=== PATIENT | male | born 1990 | race Two or more races ===

== ENCOUNTER 2024-07-04 13:47 | Inpatient (IN) | payer OTHER ==
[~2024-07-04] VITALS: Ht 172.7 cm; Wt 63.5 kg
[2024-07-04] MEDS ORDERED: NEURONTIN300 MG (13:54)
[2024-07-04] MEDS ORDERED: DISKETS40 MG (13:54)
--- NOTE | 2024-07-04 13:56 | NUR ---
PTE ALERTA Y ORIENTADO X3 REFIERE DOLOR EN TODO EL CUERPO. PTE DX CON SICKLE CELL. SE LE SEAN S/V Y SE UBICA
[2024-07-04] MEDS ORDERED: 0.9 % SODIUM CHLORIDE 1,000 ML IV STA ×2 (14:46→17:37)
[2024-07-04] MEDS ORDERED: ONDANSETRON HCL 2 MG/ML VIAL IV STA (14:46)
[2024-07-04] MEDS ORDERED: MEPERIDINE HCL/PF 50 MG/ML VIAL IM ONE ×2 (15:00→20:45)
--- NOTE | 2024-07-04 15:25 | NUR ---
SE EDUCA A PTE SOBRE TX MEDICO, SE SEAN MUESTRAS DE LABORATORIO UTILIZANDO MEDIDAS ASEPTICAS, SE COLOCA H/L DONNA DE EDEMA Y SE ADMINISTRAN MEDICAMENTOS LOS CUALES TOLERA.
[2024-07-04 16:08] LABS: URINE APPEARANCE Clear; URINE BILIRRUBIN Negative (NEGATIVE); URINE BLOOD Negative; URINE COLOR Dark Yellow; URINE GLUCOSE Negative (NEGATIVE); URINE KETONE Negative (NEGATIVE); URINE LEUKOCYTE Small; URINE NITRATE Negative; URINE PROTEIN Negative (NEGATIVE)
[2024-07-04 16:09] LABS: URINE BACTERIA 29.3 uL (0.0-1933); URINE EPITHELIAL CELLS 6.8 uL (0.0-38.8); URINE WBC 100.3 uL (0.0-23.2)
[2024-07-04 16:14] LABS: URINE CAST 0.14 uL (0.0-1.40); URINE RBC 1.6 uL (0.0-20.8); URINE UROBILINOGEN >= 8.0 E.U./dl
[2024-07-04 16:29] LABS: INR 1.12; PARTIAL THROMBOPLASTIN TIME 24.4 SECONDS (22.0-34.0); PROTHROMBIN TIME 12.1 SECONDS (9.0-11.5)
[2024-07-04 16:46] LABS: CALCIUM 9.4 mg/dL (8.5-10.1); CREATININE SERUM 0.84 mg/dL (0.70-1.30); GFR 103.98; POTASSIUM 4.31 mEq/L (3.5-5.1)
[2024-07-04 17:01] LABS: MEAN CORPUSCULAR HGB CONC 35.2 g/dl (32.0-36.0)
[2024-07-04 17:07] LABS: CORRECTED WBC 6.35 K/mm3; HEMOGLOBIN 9.1 g/dL (13-16.00); RED BLOOD COUNT 2.71 M/uL (4.00-6.00)
[2024-07-04 17:08] LABS: MEAN CORPUSCULAR HEMOGLOBIN 33.8 pg (27.00-32.0); PLATELET COUNT 308 K/uL (150-450); RED CELL DISTRIBUTION WIDTH 24.8 % (11.5-14.5)
[2024-07-04] MEDS ORDERED: OxyCODONE HCL/APAP UD (PERCOCET) PO ONE (17:45)
[2024-07-04] MEDS ORDERED: KETOROLAC TROMETHAMINE 30 MG VIAL IV ONE (17:45)
[2024-07-04] MEDS ORDERED: DIPHENHYDRAMINE HCL 50 MG/ML VIAL 1ML IV ONE (17:45)
[2024-07-04] MEDS ORDERED: PROMETHAZINE HCL 25 MG/ML AMPUL IM ONE (20:45)
[2024-07-04] MEDS ORDERED: CEFTRIAXONE SODIUM 2,000 MG in 0.9 % SODIUM CHLORIDE 100 ML IV SCH (21:29)
[2024-07-04] MEDS ORDERED: ONDANSETRON HCL 4 MG in 0.9 % SODIUM CHLORIDE 50 ML IV PRN (21:30)
[2024-07-04] MEDS ORDERED: MEPERIDINE HCL/PF 25 MG/ML VIAL IM PRN (21:30)
[2024-07-04] MEDS ORDERED: ACETAMINOPHEN 500 MG GEL..CAP PO PRN (21:30)
[2024-07-04] MEDS ORDERED: 0.9 % SODIUM CHLORIDE 1,000 ML IV SCH (21:30)
[2024-07-04] MEDS ORDERED: HYDROXYUREA 500 MG CAP PO SCH (21:34)
[2024-07-05 00:36] VITALS: BP 121/71; O2SAT 97
== END 2024-07-05 06:16 | disposition left against medical advice (07) | DRG 812 ==
LOC: ER 13:49 → MEDJ 21:37 → SEC-K 21:37 → MEDI 07-05 00:49 → MEDJ 07-05 00:49
PROVIDERS: Emergency Medicine; ADMIT Internal Medicine; ATTEND Internal Medicine
DX: D57.1 Sickle-cell disease without crisis (principal); Z20.822 Contact with and (suspected) exposure to COVID-19; Z53.29 Procedure and treatment not carried out because of patient's decision for other reasons